=== PATIENT | male | born 1995 | race Caucasian/White ===

== ENCOUNTER 2024-07-22 11:32 | Emergency (ER) | payer BC, SELFPAY ==
[2024-07-22 11:41] VITALS: BP 121/75; PULSE 81; RESP 16; TEMP 36.6; O2SAT 98
[2024-07-22 12:03] LABS: EDCOVIDSCREEN Negative (Negative); EDINFLUASCREEN Negative (Negative); EDINFLUBSCREEN Negative (Negative); EDSTREPNEGPOS1 Negative (Negative)
--- NOTE | 2024-07-22 12:09 | ED_ITS ---
HPI - URI/Sore Throat General Chief Complaint: Upper Respiratory Infection Stated Complaint: Congestion Time Seen by Provider: 07/22/24 11:52 Source: patient Mode of arrival: ambulatory Limitations: no limitations History of Present Illness HPI Narrative: Patient presents to clinic with congestion, cough, and sore throat x3 days. He has not been taking anything [id number]. Denies any SOB or difficulty sw allowing. Related Data Home Medications ?Medication ?Instructions ?Recorded ?Confirmed ?Last Taken ?Type duloxetine 07/22/24 Unknown History topiramate 07/22/24 Unknown History Allergies Allergy/AdvReac Type Severity Reaction Status Date / Time No Known Allergies Allergy Verified 07/22/24 11:50 Review of Systems Review of Systems: CONSTITUTIONAL: Denies body aches, fever, chills, or sweats. EYES: Denies visual changes, redness, or discharge. ENT: Reports rhinorrhea, congestion, and sore throat,. [place] Otalgia. CARDIOVASCULAR: Denies chest pain, palpitations, or edema. RESPIRATORY: Reports cough. Denies dyspnea. GASTROINTESTINAL: Denies abdominal pain, nausea, vomiting, or diarrhea. GENITOURINARY: Denies dysuria or hematuria. SKIN: Denies rash, itching, or wounds. MUSCULOSKELETAL: Denies back pain, joint pain, or myalgia. NEUROLOGIC: Denies headache, numbness, tingling, or weakness. PSYCH: Denies depression or anxiety. All systems reviewed & are unremarkable except as noted in HPI and below PMFSH Comments At time of signature, I have reviewed and agree with nursing past medical, surgical, social and family history unless otherwise noted. Please see nursing chart for further information. There is no relevant family history pertinent to the presenting complaint. Exam Narrative: GENERAL: Well-appearing, well-nourished, and in no acute distress. EYES: EOMI. No redness or drainage. Conjunctivae normal. ENT: Mucous membranes pink and moist. Nares clear. TMs normal bilaterally. Throat Erythematous, but without tonsillar exudate, uvula midline. Nasal congestion and rhinorrhea noted. NECK: Normal AROM. Supple. No lymphadenopathy. CHEST: No respiratory distress. Clear to auscultation. HEART: Regular rate and rhythm. No murmur appreciated. Normal peripheral pulses. ABDOMEN: Soft, nontender, nondistended, normal active bowel sounds. SKIN: Warm, dry, no rash. Capillary refill normal. Normal skin turgor. NEURO: No focal deficits. Alert and oriented x3. Gait steady. PSYCH: Normal affect. No signs of depression or anxiety. Course Course Level of Care: Express Care Visit Vital Signs Vital signs: Vital Signs Temperature 98 F 07/22/24 11:41 Pulse Rate 81 07/22/24 11:41 Respiratory Rate 16 07/22/24 11:41 Blood Pressure 121/75 07/22/24 11:41 Pulse Oximetry 98 07/22/24 11:41 Temperature 98 F 07/22/24 11:41 Pulse Rate 81 07/22/24 11:41 Respiratory Rate 16 07/22/24 11:41 Blood Pressure 121/75 07/22/24 11:41 Pulse Oximetry 98 07/22/24 11:41 Reviewed. MDM - URI/Sore Throat MDM Narrative Medical decision making narrative: Discussed physical exam findings. Advised supportive measures and signs/symptoms to go to the ER. Pt is appropriate for outpt treatment and follow up. Differential Diagnosis Differential diagnosis: Likely upper respiratory infection, sinusitis, viral infection, influenza and other (covid, strep, allergies. ) Lab Data Labs: Lab Results 07/22/24 Range/Units 12:01 POC Influenza A Ag Negative (Negative) POC Influenza B Ag Negative (Negative) POC SARS CoV-2 Ag Negative (Negative) POC Grp A Strep Screen Negative (Negative) Critical Care Time Critical Care Time Critical Care Time: No Discharge Plan Discharge Clinical Impression: Upper respiratory infection Qualifiers: URI type: unspecified viral URI Qualified Code(s): J06.9 - Acute upper respiratory infection, unspecified Patient Disposition: Home Condition: Stable Instructions: Viral Syndrome (ED) Additional Instructions: Recommend Flonase spray and Zyrtec (or Claritin/Shayna) over the counter Cough syrup may cause drowsiness; avoid driving or take it at night time. Tylenol every 8 hours as needed for pain Symptomatic treatment includes: rest, fluids, and increase humidity of the air at home. Follow up with your primary care provider in 1 week. Go to the ER for worsening symptoms or concerns. Patient Language: Syriac Prescriptions: No Action topiramate duloxetine Follow-up/Referrals: PHYSICIAN,SILVER LAP MACHINE TENDER [Primary Care Provider] - Time of Disposition: 12:10
== END 2024-07-22 12:15 | disposition home or self-care (01) ==
DX: J06.9 Acute upper respiratory infection, unspecified (principal); Z20.822 Contact with and (suspected) exposure to COVID-19
CPT/HCPCS: 87081; 87426; 87804; 87880; 99203; G0463

== ENCOUNTER 2025-01-21 16:05 | Emergency (ER) | payer BC, OTHER, SELFPAY ==
[2025-01-21 16:18] VITALS: BP 120/77; PULSE 76; RESP 16; TEMP 36.4; O2SAT 100
--- NOTE | 2025-01-21 16:50 | ED_ITS ---
HPI - URI/Sore Throat General Chief Complaint: Upper Respiratory Infection Stated Complaint: Eye Irritation/Congestion Time Seen by Provider: 01/21/25 16:40 Source: patient and RN notes reviewed Mode of arrival: ambulatory Limitations: no limitations History of Present Illness HPI Narrative: 29-year-old male patient presents Express Care complaining of sore throat, congestion, slight cough for approximately 1 week. Patient said also today will cover with mucopurulent drainage of his left eye and eye redness. Patient's event child recently was treated for conjunctivitis. Patient's symptoms are not getting better. Patient denies any other upper respiratory symptoms, fevers, body aches, chills, nausea vomiting, diarrhea, chest pain, difficulty breathing, or any other symptoms. Patient taking [id number] cold/flu medications without relief. Patient denies any significant past medical history. Related Data Home Medications ?Medication ?Instructions ?Recorded ?Confirmed ?Last Taken ?Type duloxetine 07/22/24 Unknown History topiramate 07/22/24 Unknown History Allergies Allergy/AdvReac Type Severity Reaction Status Date / Time No Known Allergies Allergy Verified 01/21/25 16:14 Review of Systems Review of Systems: CONSTITUTIONAL: Denies fever, chills, or sweats. EYES: Denies visual changes. Positive for redness and discharge. ENT: Denies rhinorrhea, or otalgia. Positive sore throat congestion. CARDIOVASCULAR: Denies chest pain, palpitations, or edema. RESPIRATORY: Positive for cough. Negative for wheezing or dyspnea. GASTROINTESTINAL: Denies abdominal pain, nausea, vomiting, or diarrhea. GENITOURINARY: Denies dysuria or hematuria. SKIN: Denies rash or itching. MUSCULOSKELETAL: Denies back pain, joint pain, or myalgia. NEUROLOGIC: Denies headache, numbness, or weakness. PSYCHIATRIC: Denies anxiety or depression. All other systems reviewed are negative, except as documented in HPI. PMFSH Comments At the time of my signature, I reviewed and agree with the nursing past medical, surgical, social, and family history. There is no relevant family history pertinent to the patient complaint. Exam Narrative: GENERAL: This is a well-nourished, well-developed adult, in no apparent distress. They are non ill-appearing, nontoxic appearing. HEAD: normocephalic, atraumatic. EYES: Sclera clear/white. Right Conjunctiva normal. Left conjunctiva injected. No exudate present. Vision is grossly intact. Extraocular movements intact EARS: External ears normal, auditory canals clear and without drainage, TMs normal without perforation. Hearing grossly intact. NOSE: External nose normal with no obvious nasal discharge, nasal turbinates erythemic without swelling, no rhinorrhea. THROAT: Mucous membranes moist, posterior pharynx erythemic and red and patchy. No swelling. Cobblestone appearing. Uvula midline. NECK: Neck supple, mild cervical lymphadenopathy, no masses or thyromegaly. CARDIOVASCULAR: Regular rate and rhythm without murmurs, gallops, or rubs. RESPIRATORY: Clear to auscultation. Breath sounds equal bilaterally. No wheezes, rales, or rhonchi. SKIN: warm, Dry, intact with no suspicious lesions or rash, good texture and turgor. NEURO: awake, alert, and oriented to person, place and time. There were no obvious focal neurologic abnormalities. EXTREMITIES: No joint tenderness, effusion, or edema noted. BACK: Nontender without deformity. No CVA tenderness. Course Course Emergency Course: Portions of this record may have been created with voice recognition software Level of Care: Express Care Visit Vital Signs Vital signs: Vital Signs Temperature 97.6 F 01/21/25 16:18 Pulse Rate 76 01/21/25 16:18 Respiratory Rate 16 01/21/25 16:18 Blood Pressure 120/77 01/21/25 16:18 Pulse Oximetry 100 01/21/25 16:18 Temperature 97.6 F 01/21/25 16:18 Pulse Rate 76 01/21/25 16:18 Respiratory Rate 16 01/21/25 16:18 Blood Pressure 120/77 01/21/25 16:18 Pulse Oximetry 100 01/21/25 16:18 Reviewed MDM - URI/Sore Throat MDM Narrative Medical decision making narrative: Physical exam is clinical suspicion for strep pharyngitis, given patient's length of symptoms will present early treat for strep throat. Will treat with amoxicillin. The likely appears patient has bacterial conjunctivitis the left eye. Will treat with polymyxin eye drops. Discussed physical exam findings. Advised supportive measures and signs/symptoms to go to the ER. Pt is appropriate for outpt treatment and f/u. Differential Diagnosis Differential diagnosis: Likely upper respiratory infection, otitis media, sinusitis, viral infection, pharyngitis and other (Conjunctivitis) Critical Care Time Critical Care Time Critical Care Time: No Discharge Plan Discharge Clinical Impression: Pharyngitis Qualifiers: Pharyngitis/tonsillitis etiology: unspecified etiology Qualified Code(s): J02.9 - Acute pharyngitis, unspecified Conjunctivitis Qualifiers: Conjunctivitis type: acute Acute conjunctivitis type: bacterial Laterality: left Qualified Code(s): H10.32 - Unspecified acute conjunctivitis, left eye Patient Disposition: Home Condition: Stable Instructions: Antibiotic Form, Pharyngitis (ED), Conjunctivitis (ED) Additional Instructions: Please take the amoxicillin as prescribed until gone. ?You will be contagious for 24 hours after starting the medication. ?After 24 hours on antibiotics throw tooth brush away and start using a new one. Wash your sheets and cup/water cassidy le that is used daily. Do not share drinks. Take Tylenol or Ibuprofen for pain or fever as needed, follow instructions on the bottle. Rest and stay hydrated. ?Follow up with your PCP in 3 days if symptoms are not improving. ?Go to the ER immediately if you develop worsening symptoms such as shortness of breath, difficulty swallowing, chest pain, nausea, vomiting, or any serious concerns. Your exam today shows Conjunctivitis, You have been given a prescription for eye drops. Use the eye drops as instructed. If you are not better in two (2) days, you need to follow up with an pizza driver. Do not rub the eye or put anything else in the eye, this can cause abrasions (scratches) on the eye or lead to vision loss. Also it is important not to touch the tube or tip of drops to the eye, as this can cause further infection. Wash your hands very well before instilling the medication. Handwashing can help prevent the spread of disease. Return to ER for vision problems comes severe eye pain, headaches, or any serious concerns problems Contact [facility] if you need an [employer] Clerk Patient Language: Martiniquais Prescriptions: New amoxicillin 500 mg tablet 500 mg PO Q12H 10 Days Qty: 20 0RF polymyxin B sulf-trimethoprim 10,000 unit- 1 mg/mL drops 1 drp LEFT EYE Q3H 7 Days Qty: 10 0RF Rx Instructions: while awake; do not exceed 6 doses in 24 hours No Action topiramate duloxetine Follow-up/Referrals: PHYSICIAN,CUSTOMER OPERATIONS INTERN [Primary Care Provider, Internal Medicine] Stand Alone Forms: Work/School Release IP Time of Disposition: 16:48
== END 2025-01-21 16:51 | disposition home or self-care (01) ==
DX: J02.9 Acute pharyngitis, unspecified (principal); H10.32 Unspecified acute conjunctivitis, left eye
CPT/HCPCS: 99213; G0463